=== PATIENT | female | born 1995 | race Caucasian/White ===

== ENCOUNTER 2017-05-11 18:08 | Emergency (ER) | payer OTHER ==
[~2017-05-11] VITALS: Ht 162.6 cm; Wt 46.8 kg
[2017-05-11 18:11] VITALS: BP 104/73; PULSE 62; RESP 20; O2SAT 100
[2017-05-11 19:23] LABS: BASOPHILS % (AUTO) 0.6 % (0-3); EOSINOPHILS % (AUTO) 2.5 % (0-5); MONOCYTES % (AUTO) 9.9 % (4-12); Mean Corpuscular Hemoglobin 30.5 pg (27.0-35.0); NEUTROPHILS % (AUTO) 56.8 % (40-74); Platelet Count 222 bil/L (150-400)
== END 2017-05-11 19:54 | disposition left against medical advice (07) ==
LOC: SED 18:08
DX: Z53.21 Procedure and treatment not carried out due to patient leaving prior to being seen by health care provider (principal)